=== PATIENT | female | born 1990 | race Caucasian/White ===

== ENCOUNTER 2020-03-14 11:35 | Outpatient (REF) | payer MEDICAID, SELFPAY | END 2020-03-14 11:36 | disposition home or self-care (01) | LOC: HO.LAB 11:35 | PROVIDERS: Visit Provider Internal Medicine | DX: Z20.822 Contact with and (suspected) exposure to COVID-19 (principal) | CPT/HCPCS: 36415; C9803; U0003 ==

== ENCOUNTER 2024-12-02 11:39 | Emergency (ER) | payer OTHER, SELFPAY ==
--- NOTE | ~2024-12-02 | XR_ITS ---
EXAMINATION: XR FINGER, RIGHT CLINICAL INFORMATION: Right ring finger injury. fracutre? COMPARISON: None available. TECHNIQUE: PA hand with oblique and lateral views of the right third digit. FINDINGS: The bones and soft tissues are normal. No fracture. Alignment is anatomic. Joint spaces are maintained. XR/XR finger RT min 2V IMPRESSION: No acute bony abnormality. Electronically signed by: Tanvir Palacios MD 12/02/2024 01:18 PM EDT
[2024-12-02 11:59] VITALS: BP 154/88; PULSE 92; RESP 20; TEMP 37; O2SAT 99; BMI 23.5
--- NOTE | 2024-12-02 12:05 | ED_ITS ---
HPI - General Adult General Chief complaint: Extremity Problem Stated complaint: slammed finger in car door, no movement Time Seen by Provider: 12/02/24 13:31 Source: patient and old records reviewed Mode of arrival: ambulatory Limitations: no limitations History of Present Illness ED Provider: DEEPAK HPI narrative: 34 yo female R hand dominant here s/p slamming her middle finger in car door on Friday. She notes it hurts to move - UC did xray no fracture but she has a stable sunbungual hematoma and mpain. Has injured this finger before. complaint: R middle finger injury Onset (ago): day(s) Location: right and upper extremity Radiation: non-radiation Severity: severe Quality: aching Pain Consistency: constant Relieving factors: immobilization Exacerbating factors: movement Associated symptoms: denies other symptoms Treatments prior to arrival: none Related Data Allergies Allergy/AdvReac Type Severity Reaction Status Date / Time amoxicillin (AMOXICILLIN) Allergy Severe HIVES Unverified 12/02/24 12:00 Penicillins (PENICILLINS) Allergy Severe HIVES Unverified 12/02/24 12:00 lorazepam (From ATIVAN) Allergy Unknown CONVULSION Unverified 12/02/24 12:00 AND JITTERY From BENADRYL Allergy Unknown CONVULSION, Uncoded 12/02/24 12:00 JITTERY Review of Systems Review of Systems: Yes all other systems are reviewed and are negative [facility] Past Medical History Attestation statement: The following information was validated with the patient. Medical History No pertinent past medical history Social History Social History (Updated 12/02/24 @ 14:18 by Catia Cruz DO) Patient Tobacco Use Status: Tobacco use Unknown Advance Directives: No Advance Directives Information Provided: No Physical Exam ED Vital Signs: Vital Signs - 24 hr 12/02/24 11:59 12/02/24 13:41 12/02/24 13:57 Temperature 98.6 F 97.5 F 97.5 F Pulse Rate 92 95 95 Respiratory Rate 20 16 16 Blood Pressure 154/88 H 135/95 H 135/95 H Pulse Oximetry 99 97 97 Oxygen Delivery Method Room Air Room Air Room Air BMI result Body Mass Index 23.5 Appearance: Alert. Oriented X3. No acute distress. Eyes: normal in appearance ENT: Pharynx normal. Neck: Normal inspection. . CVS: Pulses normal. Abdomen: deferred Respiratory: No respiratory distress. Skin: Skin warm and dry. Normal skin color. Extremities: R middle finger swelling at distal tip and hematoma at prox nail fold / nail involving lunula no signs of infection, FSP/FDP and extensors intact, BCR, sensation intact Neuro: Oriented X 3. No motor deficit. No sensory deficit. Course Course Course Narrative: RME: 34 yold muriel presents to the ED for right middle finger swelling/pain and bruising under fingernail. Patient states slammed door on finger. Xray ordered. Procedures Procedure Narrative Procedure Narrative: betadine sterile procedure R middle finger with verbal consent and sterile gauze, use cautery to open area just below lunula and lateral on R middle finger - no blood expressed it was old Medical Decision Making Medical Decision Making MDM Narrative: 34 yo female R hand dominant here with c/o crush injury to R middle finger patient is NV intact, she is asking for nail trephination but aware given the onset it will likely not work she wants to proceed Differential Diagnosis Differential Diagnoses: The differential diagnosis associated with the presentation includes fracture, hematoma Independent Interpretation I performed an independent interpretation of an: Plain X-Ray (no fx) Radiology Impression Discussion of test interpretation with radiology: I have reviewed the radiologist's reading. Prescription Management I considered prescription management with: Pain Medication Discharge Plan Discharge Clinical Impression: Subungual hematoma of finger Patient Disposition: Home, Self-Care Instructions: Subungual Hematoma (ED) Additional Instructions: be very careful of infection - showers are okay but that is it monitor for redness, yellow drainage keep clean and dry for a good week. you can apply neosporin twice a day for 5 days area is too old to drain. we did make a small hole but no blood came out. you are at risk for disfigured nail given blood near the lunula but this will take time to see expect 2 weeks of recovery. Stand Alone Forms: Work/School Release Interventions: ED Discharge Assessment Last Done: 12/02/24 13:57 Discharge Date/Time: 12/02/24 13:58 Print Language: Romanian
[2024-12-02 13:41] VITALS: BP 135/95; PULSE 95; RESP 16; TEMP 36.4; O2SAT 97
[2024-12-02 13:57] VITALS: BP 135/95; PULSE 95; RESP 16; TEMP 36.4; O2SAT 97
--- OUTSIDE RECORDS SUMMARY | 2024-12-02 15:30 | XMS_ITS | Clinical Summary ---
Author Organization [facility] Address [address] [place] [address] Phone Care Team Providers Care Charger Tester Name Role Phone Mei Christopher NP Primary Care Provider [phone] Allergies Active Allergy Reactions Criticality Noted Date Comments Amoxicillin 12/02/2019 Penicillins 12/02/2019 Medications ibuprofen (ADVIL,MOTRIN) 600 MG tablet Take 1 tablet (600 mg total) by mouth every 6 (six) hours as needed for pain (specific location in comments). 20 tablet 12/02/2019 Active Encounters Date Type Department Care Team Description 11/29/2024 [facility] RISK SCORES SYSTEM GENERATED External System Generated Encounter [address] [place] [address] Unknown, Unknown, from Last 3 Months Social History Tobacco Use Types Packs/Day Years Used Date Smoking Tobacco: Every Day Smokeless Tobacco: Never Tobacco Cessation:Ready to Q uit: Not Asked; Counseling Given: Not Answered Alcohol Use Standard Drinks/Week Comments Yes 0 (1 standard drink = 0.6 oz pur e alcohol) social Education Answer Date Recorded Are you interested in more education? Not on mervat e 06/28/2022 Are you concerned about learning? Not on file 06/28/2022 No 06/28/2022 No 06/28/2022 Digital Access Answer Date Recorded No 07/29/2022 No 07/29/2022 No 07/29/2022 Reliable internet access at home? Not on file 07/29/2022 Device with a working camera? Not on file Intimate Partner Violence Answer Date R ecorded Are you denied basic needs s uch as food, clothing, or medical care? No 03/22/2022 In the past 12 months have y ou been in a relationship with a person who hurts, threatens, or tries to control you? No 03/22/2022 Are you denied basic needs s uch as food, clothing, or medical care? No 03/22/2022 In the past 12 months have y ou been in a relationship with a person who hurts, threatens, or tries to control you? No 03/22/2022 Comments No Sex and Gender Information Value Date Recorded Sex Assigned at Female 12/02/2019 12:20 PM EDT Legal Sex Female 9:02 PM EDT Gender Identity Female 12/02/2019 12:20 PM EDT Sexual Orientation Straight 12/02/2019 12 :20 PM EDT Last Filed Vital Signs Vital Sign Reading Time Taken Comments Blood Pressure 140/87 03/22/2022 6:46 PM EST Pulse 106 03/22/2022 6:46 PM EST Temperature 36.4 C (97.5 F) 03/22/2022 6:46 PM EST Respiratory Rate 18 03/22/2022 6:46 PM EST Oxygen Saturation 97% 03/22/2022 6:46 PM EST Inhaled Oxygen Concentration - - Weight 62.6 kg (138 lb) 03/22/2022 6:46 PM EST Height 160 cm (5' 3 ) 12/02/2019 12:22 PM EDT Body Mass Index 24.45 12/02/2019 12:22 PM EDT Plan of Treatment Health Maintenance Due Date Last Done Comments DEPRESSION SCREENING 2002 SMOKING Hx and SMOKELESS TOBACCO SCREENING 2003 HEPATITIS C SCREENING 2008 HIV ONE-TIME SCREENING (18-65 YEARS) 2008 PNEUMOCOCCAL VACCINES (0-49 years) (1 of 2 - PCV) 2009 PAP SMEAR 08/21/2021 08/21/2018 INFLUENZA VACCINE (#1) 2024 6, 12/25/2014, 12/17/2013, Additional history exists COVID-19 VACCINE ( - season) 2024 Adult Td,Tdap Booster 09/22/2033 09/23/2023 , 05/11/2012, 09/08/2008, Additional history exists HIB VACCINES Completed 07/02/1991, 03/1990, 1990, Additional history exists MENINGOCOCCAL VACCINES (ACWY) Completed 09/09/2006 HEPATITIS A VACCINES Aged Out No long er eligible based on patient's age to complete this topic MENINGOCOCCAL VACCINES (B) Aged Out N o longer eligible based on patient's age to complete this topic Medical Devices Not on file Procedures Procedure Name Priority Date/Time Associated Diagnosis Comments PAP TEST Routine 08/21/2018 12:00 AM EDT from Last 3 Months or Most Recently Relevant to Health Maintenance Results * Pap Smear (08/21/2018 12:00 AM EDT) 08/21/2018 08/24/2018 11: 10 AM EDT Narrative SEE NARRATIVE - 08/28/2018 10:22 [place] [address] Spray Painter Helper: Che Tolentino MD AIRPLANE PILOT SUPERVISOR Cytology Report FINAL DIAGNOSIS A. PAP SMEAR (SUREPATH) CE: SPECIMEN ADEQUACY: Satisfactory for evaluation; transformation zone present. Limited by inflammation INTERPRETATION: NEGATIVE FOR INTRAEPITHELIAL LESION OR MALIGNANCY. Fungal organisms morphologically consistent with Nayana species. Electronically Signed Out By: MIRANDA Woods(ASCP) The Pap test is a screening test primarily for squamous cancers and precursors and has associated false-negative and false-positive results. New technologies such as liquid-based preparations may decrease but will not eliminate all false-negative results. Regular sampling and follow-up of unexplained clinical signs and symptoms are recommended to minimize false negative results. CLINICAL HISTORY Date of Last Menstrual Period: Not Provided Menstrual History: Unknown Contraceptive History: IUD Other Clinical Conditions: Screening Pap SPECIMEN SOURCE A: PAP SMEAR (SUREPATH) CE Patient Name: SANJU SOLIS : 1990 (Age: 28) Sex: F Institution: [facility] Location: [facility] Date of Collection: 08/21/2018 Date of Reported: 08/28/2018 10:22 Results to: Mei Christopher NP us Mei Christopher NP CYTOLOGY ORDERABLES Final Resu lt SEE NARRATIVE from Last 3 Months or Most Recently Relevant to Health Maintenance Insurance ACO ACO ACO ACO ACO ACO Care Teams Charger Tester Relationship Specialty Start Date End Date Mei Christopher NP [address] [place] [address] [email or web address] PCP - General 12/02/19 Additional Source Comments The information contained in this document represents components of the legal health record. It is not the complete legal health record.[facility]
--- OUTSIDE RECORDS SUMMARY | 2024-12-02 15:30 | XMS_ITS | Clinical Summary ---
Author Organization [employer] Address [address] [facility] [address] [place] [address] Care Team Providers Care Rate Reviewer Name Role Phone Unavailable Primary Care Provider Unavailabl e Allergies Active Allergy Reactions Criticality Noted Date Comments Penicillin G Hives 02/27/2022 Medications methadone (Dolophine) 10 MG/ML solution Take 1 mL by mouth every 8 (eight) hours. Active Social History Tobacco Use Types Packs/Day Years Used Date Smoking Tobacco: Former Cigarettes 0.3 1 Passive Smoke Exposure: Past Smokeless Tobacco: Former Tobacco Cessation:Counseling Given: No Alcohol Use Standard Drinks/Week Comments Never 0 (1 standard drink = 0.6 oz pur e alcohol) Comments Unknown Sex and Gender Information Value Date Recorded Sex Assigned at Female 12/31/2021 10:28 AM EDT Legal Sex Female 10:28 AM EDT Gender Identity Female 12/31/2021 10:28 AM EDT Sexual Orientation Straight 12/31/2021 10 :28 AM EDT Plan of Treatment Health Maintenance Due Date Last Done Comments Dental Oral Exam 1990 Dental Prophylaxis 1990 Dental X-Ray: Bitewings 1990 Depression Screening 1990 HIV Screening 1990 SDOH Screening 1990 Disability Screening 1990 Alcohol/Substance Use Screening 2002 Family Planning (PISQ) 2005 HPV Vaccines (1 - 3-dose series) 2005 Hepatitis C Screening 2008 DTaP/Tdap/Td Vaccines (1 - Tdap) 2009 Hepatitis B Vaccines (1 of 3 - 19+ 3-dose series) 2009 Pap Smear 2011 Cervical Cancer Screening 2020 HPV/Cotest 2020 Tobacco Screening 02/27/2023 02/27/2022 COVID-19 Vaccine (1 - 2023-2 5 season) 2024 Influenza Vaccine (#1) 2024 Dental X-Ray: Full Mouth 02/28/2025 02/27/2022 Zoster Vaccines (1 of 2) 2040 RSV Patients and Pa tients Aged 60 years or older (1 - 1-dose 75+ series) 2065 HIB Vaccines Aged Out No longer eligi ble based on patient's age to complete this topic Hepatitis A Vaccines Aged Out No long er eligible based on patient's age to complete this topic IPV Vaccines Aged Out No longer eligi ble based on patient's age to complete this topic Meningococcal B Vaccine Aged Out No l onger eligible based on patient's age to complete this topic Meningococcal Vaccine Aged Out No doreen abril eligible based on patient's age to complete this topic Pneumococcal Vaccine: Pediat rics (0 to 5 Years) and At-Risk Patients (6 to 49) Years Aged Out No longer eligi ble based on patient's age to complete this topic RSV under 20 months Aged Out No longe r eligible based on patient's age to complete this topic Rotavirus Vaccines Aged Out No longer eligible based on patient's age to complete this topic Procedures Procedure Name Priority Date/Time Associated Diagnosis Comments PANORAMIC RADIOGRAPHIC IMAGE Routine 02/27/2022 10:30 AM EST Necrosis of dental pulp from Last 3 Months or Most Recently Relevant to Health [place] [id number] [facility] MEDICAID STAND ADULT
--- OUTSIDE RECORDS SUMMARY | 2024-12-02 15:30 | XMS_ITS | Encounter Summary ---
Author Organization [facility] Address [address] [place] [address] Phone Care Team Providers Care Grain Ii Farmworker Name Role Phone Mindy Connell UPFITTER Unavailable Marylou Adkins UPFITTER Unavailable [phone] Unknown, Unknown Primary Care Provider Ciera Lambert MD Unavailable Pcp, Unknown Primary Care Provider Unavailmyke e Pcp, Unknown Primary Care Provider UnavailMei Hodgson UPFITTER Primary Care Provider Zack Goodson MD Unavailable [phone] Encounter Details Date Type Department Care Team (Late st Contact Info) Description 09/08/2019 Transcribe Orders Virtual Department [address] [place] [address] Janelle Ward, UPFITTER [address] [place] [address] Sore throat (Primary Dx) Social History Tobacco Use Types Packs/Day Years Used Date Smoking Tobacco: Never Assessed Comments Unknown Sex and Gender Information Value Date Recorded Sex Assigned at Female 12/02/2019 12:20 PM EDT Legal Sex Female 9:02 PM EDT Gender Identity Female 12/02/2019 12:20 PM EDT Sexual Orientation Straight 12/02/2019 12 :20 PM EDT documented as of this encounter Plan of Treatment Not on file documented as of this encounter Results * COVID-19 PCR Order (09/09/2019 11:08 AM EDT) Specimen Source NASOPHARYNGEAL SWAB (UPFITTER) [facility] COVID Testing Status [place] [facility] Other 09/09/2019 11:0 8 AM EDT 09/09/2019 11:54 AM EDT us Janelle Ward NP BODY FLUIDS AND STOOLS ORDERA BLES Final Result [address] [address] documented in this encounter Visit Diagnoses Diagnosis Sore throat- Primary Acute pharyngitis documented in this encounter Additional Health Concerns Infection Onset Date Last Indicated Resolved Time CoV-Risk 09/08/2019 09/09/2019 09/22/2019 1:24 AM EDT CoV-Exposed Comment:Recent close contact 09/18/2019 09/18/2019 10/02/2019 1:24 AM EDT documented as of this encounter Care Teams Grain Ii Farmworker Relationship Specialty Start Date End Date Unknown, Unknown, [address] [place] [address] PCP - General 08/21/18 09/18/19 Pcp, Unknown PCP - General 09/20/19 12/01/19 Pcp, Unknown PCP - General 09/19/19 09/19/19 Mei Christopher NP [address] [place] [address] [email or web address] PCP - General 12/02/19 Mindy Connell NP [address] [place] [address] [email or web address] Historical LMR Provider 12/18/16 03/10/21 Marylou Adkins NP [address] [place] [phone] Historical LMR Provider 12/18/16 Ciera Parker MD [address] [place] [address] [email or web address] Insurance Assigned Provider 09/06/19 Zack Goodson MD [address] [place] [address] [email or web address] Insurance Assigned Provider 08/06/20 documented as of this encounter Additional Source Comments The information contained in this document represents components of the legal health record. It is not the complete legal health record.[facility]
--- OUTSIDE RECORDS SUMMARY | 2024-12-02 15:30 | XMS_ITS | Encounter Summary ---
Author Organization [employer] Address [address] [facility] [address] [place] [address] Care Team Providers Care Faculty Dean Name Role Phone Unavailable Primary Care Provider Unavailabl e Encounter Details Date Type Department Care Team (Late st Contact Info) Description 05/13/2022 Abstract [facility] [address] [place], [place] [phone] Juanjo Reeder DDS [address] [place], [place] [phone] Social History Tobacco Use Types Packs/Day Years Used Date Smoking Tobacco: Former Cigarettes 0.3 1 Passive Smoke Exposure: Past Smokeless Tobacco: Former Alcohol Use Standard Drinks/Week Comments Never 0 (1 standard drink = 0.6 oz pur e alcohol) Comments Unknown Sex and Gender Information Value Date Recorded Sex Assigned at Female 12/31/2021 10:28 AM EDT Legal Sex Female 10:28 AM EDT Gender Identity Female 12/31/2021 10:28 AM EDT Sexual Orientation Straight 12/31/2021 10 :28 AM EDT documented as of this encounter Plan of Treatment Not on file documented as of this encounter Visit Diagnoses Not on filedocumented in this encounter
--- OUTSIDE RECORDS SUMMARY | 2024-12-02 15:30 | XMS_ITS ---
[facility] Name [facility] Encounters Encounter Type Encounter Reason Primary Diagnosis Location Date Ambulatory [facility] 10/18/2024 Care Team Organization Name Specialty Phone Email Start Date End Da [facility] 10/25
--- OUTSIDE RECORDS SUMMARY | 2024-12-02 15:30 | XMS_ITS | Encounter Summary ---
Author Organization [facility] Address [address] [place] [address] Phone Care Team Providers Care Incinerator Attendant Name Role Phone Mindy Connell GEOSPATIAL INTELLIGENCE ANALYST Unavailable [phone] Marylou Adkins GEOSPATIAL INTELLIGENCE ANALYST Unavailable Unknown, Unknown Primary Care Provider Ciera Lambert MD Unavailable [phone] Pcp, Unknown Primary Care Provider Unavailabl e Pcp, Unknown Primary Care Provider UnavailMei Hodgson GEOSPATIAL INTELLIGENCE ANALYST Primary Care Provider Zack Goodson MD Unavailable [phone] Encounter Details Date Type Department Care Team (Latest Contact Info) Description 09/18/2019 Transcribe Orders [facility] Specimen Processing [address] [place] [address] Usha Melton MD [address] [place] [phone] [email or web address] COVID-19 ruled out (Primary Dx) Social History Tobacco Use Types [...] this encounter Results * COVID-19 PCR Order (09/18/2019 11:30 AM EDT) Specimen Source NASOPHARYNGEAL SWAB (GEOSPATIAL INTELLIGENCE ANALYST) [facility] COVID-19 Comment PATIENT OF [facility] COVID Testing Status MGLAB [facility] Other 09/18/2019 11:3 0 AM EDT 09/18/2019 12:57 PM EDT us Usha Zhang MD BODY FLUIDS AND STOOLS ORDERABLES Final Result [facility] [address] [place] [address] documented in this encounter Visit Diagnoses Diagnosis COVID-19 ruled out- Primary documented in this encounter Additional Health Concerns Infection Onset Date Last Indicated Resolved Time CoV-Risk 09/08/2019 09/09/2019 09/22/2019 1:24 AM EDT CoV-Exposed Comment:Recent close contact 09/18/2019 09/18/2019 10/02/2019 1:24 AM EDT documented as of this encounter Care Teams Incinerator Attendant Relationship Specialty Start Date End Date Unknown, Unknown, [address] [place] [address] PCP - General 08/21/18 09/18/19 Pcp, Unknown PCP - General 09/20/19 12/01/19 Pcp, Unknown PCP - General 09/19/19 09/19/19 Mei Christopher NP [address] [place] [id number] [email or web address] PCP - General 12/02/19 Mindy Connell NP [address] [place] [address] [email or web address] Historical LMR Provider 12/18/16 03/10/21 Marylou Adkins NP [address] [place] [address] Historical LMR Provider 12/18/16 Ciera Parker MD [address] [place] [address] [email or web address] Insurance Assigned Provider 09/06/19 Zack Goodson MD [address] [place] [address] [email or web address] Insurance Assigned Provider 08/06/20 documented as of this encounter Additional Source Comments The information contained in this document represents components of the legal health record. It is not the complete legal health record.[facility]
--- OUTSIDE RECORDS SUMMARY | 2024-12-02 15:30 | XMS_ITS | Encounter Summary ---
Author Organization [facility] Address [address] [place] [address] Phone Care Team Providers Care Sack Sorter Name Role Phone Mei Christopher NP Primary Care Provider [phone] Encounter Details Date Type Department Care Team (Late st Contact Info) Description 11/29/2024 [facility] RISK SCORES SYSTEM GENERATED External System Generated Encounter [address] [place] [address] Unknown, Unknown, Social History Tobacco Use Types Packs/Day Years Used Date Smoking Tobacco: Every Day Smokeless Tobacco: Never Alcohol Use Standard Drinks/Week Comments Yes 0 [...] Diagnoses Not on filedocumented in this encounter Care Teams Sack Sorter Relationship Specialty Start Date End Date Mei Christopher NP [address] [place] [address] [email or web address] PCP - General 12/02/19 documented as of this encounter Additional Source Comments The information contained in this document represents components of the legal health record. It is not the complete legal health record.[facility]
== END 2024-12-02 13:58 | disposition home or self-care (01) ==
PROVIDERS: Emergency Provider Emergency Medicine
DX: S60.031A Contusion of right middle finger without damage to nail, initial encounter (principal); M79.641 Pain in right hand; W23.0XXA Caught, crushed, jammed, or pinched between moving objects, initial encounter; Y93.89 Activity, other specified; Y92.89 Other specified places as the place of occurrence of the external cause; Y99.8 Other external cause status
CPT/HCPCS: 10140; 73140; 99282; 99283

== ENCOUNTER → 2024-12-02 12:04 | Outpatient (BNV) | payer OTHER, SELFPAY | PROVIDERS: Emergency Provider Emergency Medicine; Visit Provider Radiology Diagnostic Radiology | DX: S69.91XA Unspecified injury of right wrist, hand and finger(s), initial encounter (principal) | CPT/HCPCS: 73140 ==